=== PATIENT | female | born 1965 | race Caucasian/White ===

== ENCOUNTER → 2016-05-21 | Outpatient (CLI) | payer BC, OTHER ==
[~2016-05-21] MED LIST: AMBIEN 10 MG TA10 MG; AMBIEN 10 MG TA10 MG PO; AVELOX400 MG PO; BACTRIM DS TAB1 EACH PO; BENADRYL A12.5 MG/5; BENADRYL A12.5 MG/5 PO; CIPROFLOXACIN500 M1 PO; CIPROFLOXACIN500 M3 PO; DENAVIR1.5 GM TOP; DIAZEPAM 5 MG5 M1; DIPHENOXYLATE/A1 TA1 PO; FLAGYL375 MG; FORTEO PEN750 MCG/3 PO; HYDROCODON-ACE1 EAC5 PO; HYOSCYAMINE; JUVEN PACKET1 EACH PO; K-DUR 20 MEQ T20 MEQ; LEXAPRO 10 MG T10 M1 PO; LIDODERM 5%1 PATCH TOP; LORTAB 5 MG/5001 TAB PO; LORTABELXR PO; LYRICA100 MG PO; MACROBID 100 M100 M1 PO; MACRODANTIN100 MG PO; MIRALAX255 GM; MIRENA; MULTIVITAMINS PO; NAPROSYN500 MG PO; NITROFURANTOIN100 MG PO; NORCO 10-325 T1 EACH PO; NORCO 5-325 TA1 EACH PO; NORTRIPTYLINE H75 M1 PO; NUCYNTA50 MG PO; ONDANSETRON ODT4 MG PO; PERCOCET 5-3251 EACH PO; PHENERGAN 25 MG25 M1 PO; PROCHLORPERAZINE5 M1 PO; PYRIDIUM200 MG PO; ROCEPHIN 1 GM VL1 G1 IJ; ROZEREM 8 MG TAB8 MG PO; VICODIN 5-5001 EACH PO; VITAMIN C + RO500 MG PO; ZINC10 MG PO; ZOFRAN ODT4 MG PO; ZOFRAN8 MG PO
== END ==
LOC: HYPER 07:17
DX: L89.153 Pressure ulcer of sacral region, stage 3 (principal); L89.321 Pressure ulcer of left buttock, stage 1; G82.20 Paraplegia, unspecified

== ENCOUNTER → 2016-06-11 | Outpatient (CLI) | payer BC, OTHER | LOC: HYPER 06:59 | DX: L89.153 Pressure ulcer of sacral region, stage 3 (principal); L89.222 Pressure ulcer of left hip, stage 2; G82.22 Paraplegia, incomplete ==

== ENCOUNTER → 2016-12-18 | Outpatient (CLI) | payer BC, OTHER | LOC: HYPER 07-02 06:59 | DX: L89.153 Pressure ulcer of sacral region, stage 3 (principal); G82.22 Paraplegia, incomplete; I95.9 Hypotension, unspecified; Z90.710 Acquired absence of both cervix and uterus ==

== ENCOUNTER → 2017-02-25 | Outpatient (CLI) | payer BC, OTHER | LOC: HYPER 06:50 | DX: L89.153 Pressure ulcer of sacral region, stage 3 (principal); G82.22 Paraplegia, incomplete; Z90.710 Acquired absence of both cervix and uterus ==

== ENCOUNTER → 2017-03-18 | Outpatient (CLI) | payer BC, OTHER | LOC: HYPER 06:46 | DX: L89.153 Pressure ulcer of sacral region, stage 3 (principal); G82.22 Paraplegia, incomplete; Z90.710 Acquired absence of both cervix and uterus ==

== ENCOUNTER → 2017-04-21 | Outpatient (CLI) | payer BC, OTHER | LOC: HYPER 04-15 06:47 | DX: L89.153 Pressure ulcer of sacral region, stage 3 (principal); S36.63XA Laceration of rectum, initial encounter; G82.22 Paraplegia, incomplete; Z90.710 Acquired absence of both cervix and uterus; X58.XXXA Exposure to other specified factors, initial encounter; Y93.89 Activity, other specified; Y92.89 Other specified places as the place of occurrence of the external cause; Y99.8 Other external cause status ==

== ENCOUNTER → 2017-04-30 | Outpatient (CLI) | payer BC, OTHER | LOC: HYPER 06:52 | DX: L89.153 Pressure ulcer of sacral region, stage 3 (principal); G82.22 Paraplegia, incomplete; Z90.710 Acquired absence of both cervix and uterus ==

== ENCOUNTER → 2019-04-21 | Outpatient (CLI) | payer BC, OTHER | LOC: HYPER 10:44 | DX: L89.153 Pressure ulcer of sacral region, stage 3 (principal); G82.22 Paraplegia, incomplete ==

== ENCOUNTER → 2019-06-29 | Outpatient (CLI) | payer BC, OTHER | LOC: HYPER 11:30 | DX: L89.153 Pressure ulcer of sacral region, stage 3 (principal); G82.22 Paraplegia, incomplete; Z87.442 Personal history of urinary calculi ==

== ENCOUNTER → 2019-07-12 | Outpatient (CLI) | payer BC, OTHER | LOC: HYPER 13:36 | DX: L89.153 Pressure ulcer of sacral region, stage 3 (principal); L84 Corns and callosities; G82.22 Paraplegia, incomplete ==

== ENCOUNTER → 2019-11-16 | Outpatient (CLI) | payer BC, OTHER | LOC: HYPER 08:48 | PROVIDERS: ATTEND Emergency Medicine | DX: L89.153 Pressure ulcer of sacral region, stage 3 (principal); L89.626 Pressure-induced deep tissue damage of left heel; M62.3 Immobility syndrome (paraplegic); G82.20 Paraplegia, unspecified; Z90.710 Acquired absence of both cervix and uterus ==

== ENCOUNTER → 2019-11-30 | Outpatient (CLI) | payer BC, OTHER | LOC: HYPER 08:30 | PROVIDERS: ATTEND Emergency Medicine | DX: L89.153 Pressure ulcer of sacral region, stage 3 (principal); L89.626 Pressure-induced deep tissue damage of left heel; G82.20 Paraplegia, unspecified ==

== ENCOUNTER → 2019-12-14 | Outpatient (CLI) | payer BC, OTHER | LOC: HYPER 08:26 | PROVIDERS: ATTEND Emergency Medicine | DX: L89.626 Pressure-induced deep tissue damage of left heel (principal); L89.153 Pressure ulcer of sacral region, stage 3; G82.20 Paraplegia, unspecified ==

== ENCOUNTER → 2019-12-28 | Outpatient (CLI) | payer BC, OTHER | LOC: HYPER 08:12 | PROVIDERS: ATTEND Emergency Medicine | DX: L89.626 Pressure-induced deep tissue damage of left heel (principal); G82.20 Paraplegia, unspecified ==

== ENCOUNTER → 2020-01-24 | Outpatient (CLI) | payer BC, OTHER | LOC: HYPER 14:26 | PROVIDERS: ATTEND Emergency Medicine | DX: L89.626 Pressure-induced deep tissue damage of left heel (principal); G82.20 Paraplegia, unspecified; I95.9 Hypotension, unspecified ==

== ENCOUNTER → 2020-05-07 | Outpatient (CLI) | payer BC, OTHER | LOC: HYPER 12:49 | PROVIDERS: ATTEND Emergency Medicine | DX: L89.313 Pressure ulcer of right buttock, stage 3 (principal); L89.626 Pressure-induced deep tissue damage of left heel; G82.20 Paraplegia, unspecified; I95.9 Hypotension, unspecified; Z90.710 Acquired absence of both cervix and uterus ==

== ENCOUNTER → 2020-07-05 | Outpatient (CLI) | payer BC, OTHER | LOC: HYPER 07:37 | PROVIDERS: ATTEND Emergency Medicine | DX: L89.313 Pressure ulcer of right buttock, stage 3 (principal); L89.626 Pressure-induced deep tissue damage of left heel; G82.20 Paraplegia, unspecified; I95.9 Hypotension, unspecified; Z90.710 Acquired absence of both cervix and uterus ==

== ENCOUNTER → 2020-07-19 | Outpatient (CLI) | payer BC, OTHER | LOC: HYPER 07:56 | PROVIDERS: ATTEND Emergency Medicine | DX: L89.626 Pressure-induced deep tissue damage of left heel (principal); L97.422 Non-pressure chronic ulcer of left heel and midfoot with fat layer exposed; G82.20 Paraplegia, unspecified; I95.9 Hypotension, unspecified; Z90.710 Acquired absence of both cervix and uterus ==